=== PATIENT | female | born 1955 | race Caucasian/White ===

== ENCOUNTER 2024-02-25 18:18 | Observation (INO) ==
[2024-02-25 18:59] LABS: BASOPHILS % (AUTO) 0.4 % (0.0-3.0); EOSINOPHILS # (AUTO) 0.2 K/ul (0.0-0.7); EOSINOPHILS % (AUTO) 1.5 % (0.0-7.0); HEMATOCRIT 33.4 % (37.0-47.0); HEMOGLOBIN 10.5 g/dl (12.0-16.0); IMMATURE GRANULOCYTE % (AUTO) 0.3 % (0.0-5.0); LYMPHOCYTES # (AUTO) 2.8 K/uL (0.60-3.4); LYMPHOCYTES % (AUTO) 28.4 (10.0-50.0); MEAN CORPUSCULAR HEMOGLOBIN 27.4 pg (27.0-31.0); MEAN CORPUSCULAR HGB CONC 31.4 (31.8-35.4); MEAN CORPUSCULAR VOLUME 87.2 fl (81.0-99.0); MONOCYTES # (AUTO) 0.9 K/uL (0.4-2.0); MONOCYTES % (AUTO) 8.6 (0-10); NEUTROPHILS % (AUTO) 60.8 % (42.2-75.2); PLATELET COUNT 267 10^3/uL (140-440); RED BLOOD COUNT 3.83 10^6/ul (4.20-5.40); WHITE BLOOD COUNT 9.85 K/ul (4.6-10.2)
[2024-02-25 19:11] LABS: ALANINE AMINOTRANSFERASE 155.4 U/L (0-35); ALBUMIN 3.14 g/dL (3.5-5.0); ALKALINE PHOSPHATASE 80.4 U/L (53-141); ASPARTATE AMINO TRANSFERASE 130.9 U/L (14-36); BILIRUBIN,TOTAL 0.5 mg/dL (0.2-1.3); BLOOD UREA NITROGEN 23.5 mg/dL (7-17); CALCIUM 8.94 mg/dL (8.4-10.2); CARBON DIOXIDE 36.7 mmol/L (22-30.0); CHLORIDE 99.6 mmol/L (98-107); CREATININE 1.37 mg/dL (0.60-1.30); GLUCOSE 109.4 mg/dL (74-106); LIPASE 67.8 U/L (23-300); SODIUM 139.7 mmol/L (134.5-145); TOTAL PROTEIN 5.86 g/dL (6.3-8.2)
[2024-02-25 19:14] LABS: POTASSIUM 2.47 mmol/L (3.5-5.1)
[2024-02-25] MEDS: GLUCAGEN IVP STA (19:14)
[2024-02-25] MEDS: PEPCID IVP ONE (19:15)
[2024-02-25] MEDS: SODIUM CHLORIDE 1,000 ML IV ONE (19:15)
[2024-02-25] MEDS: REGLAN IVP STA (19:15)
[2024-02-25] MEDS ORDERED: LIDOCAINE HCL 1% ABBOJECT IVP STA (19:33)
[2024-02-25 19:34] LABS: BILIRUBIN,URINE Negative (NEGATIVE); CLARITY,URINE Clear (CLEAR); COLOR,URINE Yellow (YELLOW); GLUCOSE, URINE (UA) Negative (NEGATIVE); KETONES,URINE Negative (NEGATIVE); LEUKOCYTE ESTERASE ,URINE Negative (NEGATIVE); NITRITE,URINE Negative (NEGATIVE); PROTEIN,URINE 2+ (NEGATIVE); URINE, BLOOD 3+ (NEGATIVE); UROBILINOGEN,URINE 0.2 (0.2)
[2024-02-25] MEDS: POTASSIUM CHL 10% ORAL SOL PO STA (19:58)
[2024-02-25] MEDS: POTASSIUM CHLORIDE 20 MEQ/100 ML PREMIX 40 MEQ/200 ML BAG IV ONE (20:00)
[2024-02-25] MEDS ORDERED: POTASSIUM CHLORIDE 10 MEQ/100 ML PREMIX 10 MEQ/100 ML BAG IV SCH (20:00)
[2024-02-25] MEDS: LIDOCAINE HCL 1% ABBOJECT IVP ONE (20:00)
--- NOTE | 2024-02-25 20:38 | DI ---
EXAM: CHEST X-RAY ONE VIEW. HISTORY: Chest pain/short of breath. COMPARISON: None. FINDINGS: Heart and pulmonary vascularity within normal limits. The lungs are satisfactory inflated with linear markings in the left lower lung. Chronic appearing increased interstitial lung markings . No pleural effusion. No change in the osseous structures. IMPRESSION: 1. Left lower lung linear atelectasis and/or scarring with no acute cardiopulmonary process.
--- NOTE | 2024-02-25 20:43 | CT ---
EXAM: CT OF THE ABDOMEN AND PELVIS WITH CONTRAST TECHNIQUE: CT of the abdomen and pelvis was performed with contrast. Multiplanar reformats were perf ormed. HISTORY: Constipation. Abdominal pain. COMPARISON: None. FINDINGS: Motion degraded exam. Imaged lower thorax: Coronary calcifications. Mild dependent atelectasis in the lower lobes. Liver: Unremarkable. Gallbladder/Bile Ducts: No biliary dilation. Gallbladder is unremarkable. Spleen: Unremarkable. Pancreas: Unremarkable. Adrenals: Unremarkable. Kidneys/Ureters: 3 mm stone at the right lower renal pole. Bilateral renal arterial calcifications. No hydronephrosis. Bowel/mesentery/peritoneum: No small bowel obstruction. Large colonic stool burden. No appendicitis. No ascites or free air. Retroperitoneum/vessels: No aortic aneurysm. Extensive atherosclerotic plaques. 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 Multifocal high grade stenosis in the imaged iliofemoral branches bilaterally. Pelvis: Unremarkable. Bones/body wall: Advanced multilevel degenerative spondylosis. No acute osseous abnormality. IMPRESSION: Large colonic stool burden consistent with constipation. Severe atherosclerotic disease. 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 Status post left aortoiliac bypass. 3 mm nonobstructing right renal stone. All CT scans are performed using dose optimization techniques as appropriate to the performed exam an d include at least one of the following: Automated exposure control, adjustment of the mA and/or kV according t o size, and the use of iterative reconstruction technique.
[2024-02-25 20:49] LABS: SARS COV-2 RNA RAPID NAAT NEGATIVE (NEGATIVE)
[2024-02-25] MEDS ORDERED: ZOFRAN 4 MG/2 ML IVP PRN (21:29)
[2024-02-25] MEDS ORDERED: TYLENOL PO PRN (21:29)
--- NOTE | 2024-02-25 21:55 | ED.PDOC ---
General ED Provider: Dr. OSVALDO MCMAHAN DO Chief Complaint: Abnormal Labs Stated Complaint: 69-year-old female presents to the ER by request of primary care for abnormal labs. Apparently hypokalemic during routine lab testing. Patient denies any headache, chest pain, shortness of breath, abdominal pain, genitourinary symptoms. Patient has a history of chronic constipation. Family states that she has not had a bowel movement or any stool whatsoever in 2 weeks. No reported vomiting. Patient has a history of CVA with left-sided deficit. No blood thinner use. She does have Plavix listed on her medication list however. Time Seen by Provider: 02/25/24 18:37 Information Source: Family Primary Care Provider: KIM MCFARLANE PA-C Nursing and Triage Documentation Reviewed and Agree: Yes What is Opioid Naive?: *Opioid Naive implies the patient is not already taking opioids or not chronically receiving opioids on a daily basis. *PRN dosing is not "usually" associated with tolerance. *Patients are at higher risk of over-sedation and aspiration. What is Opioid Tolerant?: *Opioid Tolerance implies less than the expected response to an opioid. *Acquired tolerance is defined by the patient taking 60mg of oral morphine daily (or equianalgesic dose of another opioid) for 1 week or more. *Often associated with chronic pain. *May take more than usual dose to achieve desired pain control. Review of Systems Review Of Systems Constitutional: Reports No symptoms All Other Systems: Reviewed and Negative [facility] Medical History (Updated 02/25/24 @ 21:55 by OSVALDO MCMAHAN DO) History of CVA (cerebrovascular accident) Z86.73 - Personal history of transient ischemic attack (TIA), and cerebral infarction without residual deficits (ICD-10) Social History (Updated 02/25/24 @ 08:37 by LEAH PAREDES) Smoking and tobacco status: Current every day smoker Tobacco type: cigarettes Female Reproductive History Menstrual Hx Hysterectomy: No Hx Tubal Ligation: No Physical Exam Physical Exam Appearance: Reports Well-appearing, No pain distress and Well-nourished Eyes: Reports JOYA and EOMI ENT: Reports Nose normal and Oropharynx normal Neck: Supple Respiratory: Reports Airway patent, Breath sounds clear and Respirations nonlabored Cardiovascular: Reports RRR and Pulses normal GI/: Reports Soft and Nontender Musculoskeletal: Reports No edema and Other (Left-sided paralysis, chronic) Skin: Reports Warm, Dry and Normal color Neurological: Reports Sensation intact, Motor intact (Paralysis stated above), Alert and Oriented Psychiatric: Reports Affect appropriate and Mood appropriate Interpretation EKG Interpretation EKG Interpretation By: ED Physician Time of EKG #1: 19:02 Rate: Normal Rhythm: Sinus Ectopy: None [place]: NL ST Segment: Normal Interpretation: Nonischemic EKG Course Course 02/25/24 18:54 02/25/24 18:54 Orders, Labs, Meds: Lab Review 02/25/24 02/25/24 02/25/24 08:28 18:54 19:25 WBC 9.85 RBC 3.83 L Hgb 10.5 L Hct 33.4 L MCV 87.2 MCH 27.4 MCHC 31.4 L RDW Coeff of Era 15.0 H Plt Count 267 Immature Gran % (Auto) 0.3 Neut % (Auto) 60.8 Lymph % (Auto) 28.4 [place] % (Auto) 8.6 Eos % (Auto) 1.5 Baso % (Auto) 0.4 Neut # (Auto) 6.0 Lymph # (Auto) 2.8 [place] # (Auto) 0.9 Eos # (Auto) 0.2 Baso # (Auto) 0.0 Immature Gran # (Auto) 0.0 Sodium 139.7 Potassium 2.47 L* Chloride 99.6 Carbon Dioxide 36.7 H Anion Gap 5.87 BUN 23.5 H Creatinine 1.37 H Estimated GFR (MDRD) 38.00 BUN/Creatinine Ratio 17.15 Glucose 109.4 H Calcium 8.94 Total Bilirubin 0.50 AST 130.9 H ALT 155.4 H Alkaline Phosphatase 80.4 Total Protein 5.86 L Albumin 3.14 L Globulin 2.72 Albumin/Globulin Ratio 1.15 Lipase 67.8 Urine Color Yellow Urine Clarity Clear Urine pH 7.0 Ur Specific [place] 1.020 Urine Protein 2+ H Urine Glucose (UA) Negative Urine Ketones Negative Urine Blood 3+ H Urine Nitrite Negative Urine Bilirubin Negative Urine Urobilinogen 0.2 Ur Leukocyte Esterase Negative Urine Microscopic RBC 10-20 Ur Squamous Epith Cells 10-20 Ur Transition Epith Cell 5-10 SARS CoV-2 RNA Rapid TANI Negative Orders Category Date Time Status PLACE [facility] 02/25/24 21:35 Active ) EKG-(ED ONLY) Stat CARDIO 02/25/24 18:46 Completed ACTIVITY .Up With Assistance CARE 02/25/24 21:29 Active INTAKE & OUTPUT Q8HR CARE 02/25/24 21:29 Active INTAKE & OUTPUT Q8HR CARE 02/25/24 21:35 Active NPO REMINDER: IMAGING ONCE CARE 02/25/24 18:46 Completed Soap Suds [ENEMA/RECTAL TUBE] ONCE CARE 02/25/24 21:29 Active TELEMETRY MONITORING TELE CARE 02/25/24 21:35 Active TELEMETRY MONITORING TELE CARE 02/25/24 21:38 Active VITAL SIGNS Q4HR CARE 02/25/24 21:31 Active CARDIAC DIET DIETARY 02/26/24 Breakfast Ordered CBC W/ AUTO DIFF DAILY@0600 LAB 02/26/24 06:00 Ordered CBC W/ AUTO DIFF DAILY@0600 LAB 02/27/24 06:00 Ordered CBC W/ AUTO DIFF Stat LAB 02/25/24 18:54 Completed CMP [COMPREHENSIVE METABOLIC PANEL] Stat LAB 02/25/24 18:54 Completed COMPREHENSIVE METABOLIC PANEL DAILY@0600 LAB 02/26/24 06:00 Ordered COMPREHENSIVE METABOLIC PANEL DAILY@0600 LAB 02/27/24 06:00 Ordered COVID [SARS COV-2 RNA RAPID TANI] Stat LAB 02/25/24 08:28 Completed LIPASE Stat LAB 02/25/24 18:54 Completed URINALYSIS C & S IF INDICATED Stat LAB 02/25/24 19:25 Completed Acetaminophen [Tylenol] Meds 02/25/24 21:29 Ordered 650 mg PO Q4H PRN Bisacodyl [Dulcolax] Meds 02/25/24 21:29 Stat 5 mg PO ONCE STA Docusate Sodium [Colace] Meds 02/25/24 22:00 Ordered 100 mg PO BID Famotidine Inj [Pepcid] Meds 02/25/24 18:46 Discontinued 20 mg IVP ONCE ONE Glucagon,Human Recombinant [Glucagen] Meds 02/25/24 18:47 Discontinued 0.5 mg IVP ONCE STA Lidocaine HCl/Pf [Lidocaine HCl 1% Abboject] Meds 02/25/24 19:52 Discontinued 25 mg IVP ONCE ONE Metoclopramide HCl [Reglan] Meds 02/25/24 18:47 Discontinued 10 mg IVP ONCE STA Ondansetron HCl/Pf [Zofran 4 mg/2 ml] Meds 02/25/24 21:29 Ordered 4 mg IVP Q6H PRN Polyethylene Glycol 3350 [Miralax] Meds 02/26/24 09:00 Ordered 17 gm PO DAILY Potassium Chloride [Potassium Chl 10% Oral Radha] Meds 02/25/24 19:30 Discontinued 40 meq PO ONCE STA Potassium Chloride [Potassium Chloride 20 Meq/100 ml Meds 02/25/24 19:30 Active Premix] 40 meq in 200 ml IV ONCE Sodium Chloride 0.9% [Sodium Chloride] 1,000 ml Meds 02/25/24 21:30 Ordered IV 75 mls/hr Sodium Chloride 0.9% [Sodium Chloride] 1,000 ml Meds 02/25/24 18:46 Discontinued IV BOLUS CHEST, 1V AP ONLY Stat RADS 02/25/24 18:[address] ABDOMEN/PELVIS W CONTRAST Stat RADS 02/25/24 18:46 Completed Medications Generic Name Dose Route Start Last Admin Trade Name Freq PRN Reason Stop Dose Admin Acetaminophen 650 mg 02/25/24 21:29 Acetaminophen 325 Mg Tablet PO Q4H PRN Mild Pain Bisacodyl 5 mg 02/25/24 21:29 Bisacodyl 5 Mg Tablet. PO 02/25/24 21:30 ONCE STA Docusate Sodium 100 mg 02/25/24 22:00 Docusate Sodium [address] [facility] Potassium Chloride 40 meq in 200 mls @ 50 mls/hr 02/25/24 19:30 02/25/24 20:00 Potassium Chloride 20 Meq/100 Ml Premix IV 02/25/24 23:29 50 mls/hr ONCE ONE Administration Sodium Chloride 1,000 mls @ 75 mls/hr 02/25/24 21:30 Sodium Chloride IV .[id number] ALCIRA Ondansetron HCl 4 mg 02/25/24 21:29 Ondansetron Hcl/Pf 4 Mg/2 Ml Sdv IVP Q6H PRN Nausea / Vomiting Polyethylene Glycol 17 gm 02/26/24 09:00 Polyethylene Glycol 17 Gm Powd.Pack PO DAILY ALCIRA Discontinued Medications Generic Name Dose Route Start Last Admin Trade Name Freq PRN Reason Stop Dose Admin Famotidine 20 mg 02/25/24 18:46 02/25/24 19:15 Famotidine Inj 20 Mg/2 Ml Vial IVP 02/25/24 18:47 20 mg ONCE ONE Administration Glucagon 0.5 mg 02/25/24 18:47 02/25/24 19:14 Glucagon,Human Recombinant 1 Mg Kit IVP 02/25/24 18:48 0.5 mg ONCE STA Administration Sodium Chloride 1,000 mls @ 1,000 mls/hr 02/25/24 18:46 02/25/24 20:15 Sodium Chloride IV 02/25/24 19:45 Infused BOLUS ONE Infusion Lidocaine HCl 25 mg 02/25/24 19:52 02/25/24 20:00 Lidocaine Hcl/Pf 50 Mg/5 Ml Disp.Syrin IVP 02/25/24 19:53 25 mg ONCE ONE Administration Metoclopramide HCl 10 mg 02/25/24 18:47 02/25/24 19:15 Metoclopramide Hcl 10 Mg/2 Ml IVP 02/25/24 18:48 10 mg ONCE STA Administration Potassium Chloride 40 meq 02/25/24 19:30 02/25/24 19:58 Potassium Chloride 40 Meq/30 Ml Cup PO 02/25/24 19:31 40 meq ONCE STA Administration Vital Signs: Temp Pulse Resp BP Pulse Ox 02/25/24 18:37 98.0 F 69 18 141/64 H 98 Discharge Plan Discharge Patient Disposition: PLACED OBSERVATION Discharge Problem: Acute hypokalemia, Acute constipation Did you review [place] [employer] for ALL controlled substances?: Not Applicable ED Provider: OSVALDO MCMAHAN Condition: Stable Physician Progress Note: 69-year-old female presents to the ER for evaluation of abnormal labs. Requested by primary care. Noted to be hypokalemic. I have begun repletion after confirming the hypokalemia. EKG nonischemic with normal intervals at this time. Hemodynamically stable. Patient reportedly has been constipated for 2 weeks. No obvious distress or vomiting to suggest obstruction. CT scan ordered to further evaluate which demonstrates constipation without evidence of obstruction or impaction. No acute intervention in the emergency department necessary in my clinical opinion. Aggressive potassium repletion started in the emergency department and I contacted the hospital service who was gracious enough to accept this patient for further laboratory stabilization. []
[2024-02-25] MEDS: SODIUM CHLORIDE 1,000 ML IV SCH (22:35)
[2024-02-25 23:40] VITALS: BMI 22.7
[2024-02-25] MEDS ORDERED: CRESTOR PO SCH (23:45)
[2024-02-25] MEDS: COLACE PO SCH (23:59)
[2024-02-25] MEDS: DULCOLAX PO STA (23:59)
[2024-02-26] MEDS: DULCOLAX ONE
[2024-02-26] MEDS ORDERED: MIRALAX PO SCH (00:53)
[2024-02-26 01:45] LABS: BLOOD UREA NITROGEN 19.3 mg/dL (7-17); CALCIUM 8.19 mg/dL (8.4-10.2); CHLORIDE 106.7 mmol/L (98-107); CREATININE 1.23 mg/dL (0.60-1.30); GLUCOSE 92.9 mg/dL (74-106); POTASSIUM 2.85 mmol/L (3.5-5.1); SODIUM 138.9 mmol/L (134.5-145)
[2024-02-26 02:04] LABS: CARBON DIOXIDE 27.7 mmol/L (22-30.0)
[2024-02-26] MEDS: K-DUR PO ONE ×3 (02:57→10:56)
[2024-02-26 05:13] LABS: BASOPHILS % (AUTO) 0.4 % (0.0-3.0); EOSINOPHILS # (AUTO) 0.2 K/ul (0.0-0.7); EOSINOPHILS % (AUTO) 1.8 % (0.0-7.0); HEMOGLOBIN 9.5 g/dl (12.0-16.0); IMMATURE GRANULOCYTE % (AUTO) 0.2 % (0.0-5.0); LYMPHOCYTES # (AUTO) 2.6 K/uL (0.60-3.4); LYMPHOCYTES % (AUTO) 25.6 (10.0-50.0); MEAN CORPUSCULAR HEMOGLOBIN 27.6 pg (27.0-31.0); MEAN CORPUSCULAR HGB CONC 31.7 (31.8-35.4); MEAN CORPUSCULAR VOLUME 87.2 fl (81.0-99.0); MONOCYTES # (AUTO) 0.8 K/uL (0.4-2.0); MONOCYTES % (AUTO) 8.2 (0-10); NEUTROPHILS # (AUTO) 6.4 K/ul (2.0-6.9); NEUTROPHILS % (AUTO) 63.8 % (42.2-75.2); PLATELET COUNT 229 10^3/uL (140-440); RDW COEFFICIENT OF VARIATION 15.2 % (11.6-14.8); RED BLOOD COUNT 3.44 10^6/ul (4.20-5.40); WHITE BLOOD COUNT 10.01 K/ul (4.6-10.2)
[2024-02-26 05:28] LABS: ALANINE AMINOTRANSFERASE 123.6 U/L (0-35); ALBUMIN 2.68 g/dL (3.5-5.0); ALKALINE PHOSPHATASE 79.6 U/L (53-141); ASPARTATE AMINO TRANSFERASE 104.7 U/L (14-36); BILIRUBIN,TOTAL 0.5 mg/dL (0.2-1.3); BLOOD UREA NITROGEN 17.1 mg/dL (7-17); CALCIUM 7.99 mg/dL (8.4-10.2); CARBON DIOXIDE 25.7 mmol/L (22-30.0); CHLORIDE 106.5 mmol/L (98-107); CREATININE 1.22 mg/dL (0.60-1.30); GLUCOSE 92.6 mg/dL (74-106); SODIUM 136.8 mmol/L (134.5-145); TOTAL PROTEIN 5.2 g/dL (6.3-8.2)
[2024-02-26 05:31] LABS: POTASSIUM 2.7 mmol/L (3.5-5.1)
[2024-02-26] MEDS: PRILOSEC PO SCH (05:39)
[2024-02-26] MEDS: MIRALAX PO SCH (09:03)
[2024-02-26] MEDS: DITROPAN XL PO SCH (09:03)
[2024-02-26] MEDS: MYRBETRIQ PO SCH (09:04)
[2024-02-26] MEDS: NORVASC PO SCH (09:04)
[2024-02-26] MEDS: ZOFRAN TAB PO SCH (09:04)
[2024-02-26] MEDS: NYSTATIN CREAM TP SCH (09:04)
[2024-02-26] MEDS: PLAVIX PO SCH (09:04)
[2024-02-26] MEDS: ASPIRIN EC PO SCH (09:04)
[2024-02-26] MEDS: CARAFATE PO SCH (09:08)
[2024-02-26 10:14] VITALS: BP 125/56; PULSE 78; RESP 16; TEMP 98.8
[2024-02-26 12:55] LABS: BLOOD UREA NITROGEN 16.2 mg/dL (7-17); CALCIUM 8.02 mg/dL (8.4-10.2); CARBON DIOXIDE 25.4 mmol/L (22-30.0); CHLORIDE 106.8 mmol/L (98-107); CREATININE 1.16 mg/dL (0.60-1.30); POTASSIUM 3.33 mmol/L (3.5-5.1); SODIUM 137.1 mmol/L (134.5-145)
--- NOTE | 2024-02-26 13:22 | PCM.SS ---
Provider Provider: AN[facility]AN TIWARI PA-C, [facility] Ad[facility] Date Admission Date: 02/25/24 Discharge Date Discharge Date: 02/26/24 Primary Care Physician Primary Care Physician: KIM MCFARLANE PA-C Chief Complaint Reason For Visit: HYPOKALEMIA, CONSTIPATION History of Present Illness History of Present Illness: Admitted 02/25/24 21:47, this 69 year old /WHITE/F presented with family to ER for abnormal labs. Patient had visited with a new PCP yesterday morning and have labs done. Potassium was 2.4 unexpectedly, therefore she was directed to the ER. Patient has been also struggling with constipation for 2 weeks. Pt is an unreliable historian. She states this is not unusual for her, but prune juice usually takes care of it for her. However she did not try any prune juice. She has been having low back pain. Family was concerned about a UTI as she has had these in the past. UA negative for infection, but did note some hematuria. Potassium repeated and confirmed low. Liver enzymes very mildly elevated. CT a/p confirming constipation. Patient was given potassium and fluids in the ER. Patient was given dulcolax, miralax, colace, and an enema which was successful. She's had 2-3 large BMs. Would recommend a daily regimen of miralax and colace bid, prune juice prn. Liver enzymes trending down, could be reactive from significant stool burden, would recommend continuing to trend these outpatient. K+ improved with supplementation. 3.3 at time of discharge. Will discharge on 20 meq daily x5 days, f/u with pcp. Per family, they have DME needed at home. Home health ordered, they should be able to see her early next week. PCP f/u apt made for 03/04. Of note, hgb noted to be low at 9.5. Likely somewhat dilutional from fluids overnight. Labs obtained from [facility] hgb 10.5 on 01/04 so this is likely chronic. Per [facility] records, patient has pmhx of hypertension, chronic renal disease, hx of CVA, peripheral artery disease, hx of uterine and gastric cancer ROS limited due to patient being an unreliable historian. [facility] Medical History History of CVA (cerebrovascular accident) Z86.73 - Personal history of transient ischemic attack (TIA), and cerebral infarction without residual deficits (ICD-10) Social History Smoking and tobacco status: Current every day smoker Tobacco type: cigarettes Medications Mecications: Medications at Discharge (Home Meds & RX) Allergies Allergies Allergy/AdvReac Type Severity Reaction Status Date / Time No Known Allergies Allergy Unverified 02/25/24 18:36 Review of Systems Cardiovascular: Denies Chest pain, Chest Pressure or Edema Respiratory: Denies Cough Gastrointestinal: Reports Constipation; Denies Nausea, Vomiting, Diarrhea or Abdominal pain Genitourinary: Denies Dysuria or Frequency Musculoskeletal: Reports Back Pain Neurological: Reports Weakness (+chronic, left sided from previous cva ) Physical Examination Appearance: Positive No Apparent Distress, Thin and Other (+Alert, oriented to self and time only. Thinks we're in sister's home ) Head: Positive Normocephalic and Atraumatic Neck: Positive Supple Heart: Positive RRR Respiratory: Positive Breath Sounds Clear, Bilaterally and Respirations Nonlabored GI/: Positive Soft, Nontender, Bowel sounds normal and No Distention Extremities: Negative Edema Neurological: Positive Other (+left sided weakness from previous CVA, left hand contracted ) Vital Signs (Last 4 Hours) Vital Signs Last 4 Hours: Vital Signs: Last 4 Hours 02/26/24 09:47 02/26/24 10:00 02/26/24 11:00 Temperature 98.8 F Temperature Source Temporal Artery Scan Pulse Rate 78 Respiratory Rate 16 Blood Pressure 125/56 L Blood Pressure Mean 79 Blood Pressure Location Right Arm O2 Sat by Pulse Oximetry 96 Oxygen Delivery Method Room Air Room Air Room Air Telemetry Type Telemetry Monitoring Telemetry Heart Rate EKG IA Interval EKG QRS Interval Telemetry Strip Reading 02/26/24 12:00 02/26/24 12:41 02/26/24 13:00 Temperature Temperature Source Pulse Rate Respiratory Rate Blood Pressure Blood Pressure Mean Blood Pressure Location O2 Sat by Pulse Oximetry Oxygen Delivery Method Room Air Room Air Telemetry Type Remote Telemetry Telemetry Monitoring Continues Telemetry Heart Rate 74 EKG IA Interval 0.19 EKG QRS Interval 0.03 L Telemetry Strip Reading SR Labs This Visit Labs This Visit: Labs This Visit 0502/25/24 02/25/24 08:28 18:54 19:25 WBC 9.85 RBC 3.83 L Hgb 10.5 L Hct 33.4 L MCV 87.2 MCH 27.4 MCHC 31.4 L RDW Coeff of Era 15.0 H Plt Count 267 Immature Gran % (Auto) 0.3 Neut % (Auto) 60.8 Lymph % (Auto) 28.4 [place] % (Auto) 8.6 Eos % (Auto) 1.5 Baso % (Auto) 0.4 Neut # (Auto) 6.0 Lymph # (Auto) 2.8 [place] # (Auto) 0.9 Eos # (Auto) 0.2 Baso # (Auto) 0.0 Immature Gran # (Auto) 0.0 Sodium 139.7 Potassium 2.47 L* Chloride 99.6 Carbon Dioxide 36.7 H Anion Gap 5.87 BUN 23.5 H Creatinine 1.37 H Estimated GFR (MDRD) 38.00 BUN/Creatinine Ratio 17.15 Glucose 109.4 H Calcium 8.94 Total Bilirubin 0.50 AST 130.9 H ALT 155.4 H Alkaline Phosphatase 80.4 Total Protein 5.86 L Albumin 3.14 L Globulin 2.72 Albumin/Globulin Ratio 1.15 Lipase 67.8 Urine Color Yellow Urine Clarity Clear Urine pH 7.0 Ur Specific [place] 1.020 Urine Protein 2+ H Urine Glucose (UA) Negative Urine Ketones Negative Urine Blood 3+ H Urine Nitrite Negative Urine Bilirubin Negative Urine Urobilinogen 0.2 Ur Leukocyte Esterase Negative Urine Microscopic RBC 10-20 Ur Squamous Epith Cells 10-20 Ur Transition Epith Cell 5-10 SARS CoV-2 RNA Rapid TANI Negative 02/26/24 02/26/24 02/26/24 01:30 05:08 12:39 WBC 10.01 RBC 3.44 L Hgb 9.5 L Hct 30.0 L MCV 87.2 MCH 27.6 MCHC 31.7 L RDW Coeff of Era 15.2 H Plt Count 229 Immature Gran % (Auto) 0.2 Neut % (Auto) 63.8 Lymph % (Auto) 25.6 [place] % (Auto) 8.2 Eos % (Auto) 1.8 Baso % (Auto) 0.4 Neut # (Auto) 6.4 Lymph # (Auto) 2.6 [place] # (Auto) 0.8 Eos # (Auto) 0.2 Baso # (Auto) 0.0 Immature Gran # (Auto) 0.0 Sodium 138.9 136.8 137.1 Potassium 2.85 L 2.70 L* 3.33 L Chloride 106.7 106.5 106.8 Carbon Dioxide 27.7 D 25.7 25.4 Anion Gap 7.35 7.30 8.23 BUN 19.3 H 17.1 H 16.2 Creatinine 1.23 1.22 1.16 Estimated GFR (MDRD) 43.00 43.00 46.00 BUN/Creatinine Ratio 15.69 14.01 13.96 Glucose 92.9 92.6 119.0 H Calcium 8.19 L 7.99 L 8.02 L Total Bilirubin 0.50 AST 104.7 H D ALT 123.6 H D Alkaline Phosphatase 79.6 Total Protein 5.20 L Albumin 2.68 L Globulin 2.52 Albumin/Globulin Ratio 1.06 Lipase Urine Color Urine Clarity Urine pH Ur Specific [place] Urine Protein Urine Glucose (UA) Urine Ketones Urine Blood Urine Nitrite Urine Bilirubin Urine Urobilinogen Ur Leukocyte Esterase Urine Microscopic RBC Ur Squamous Epith Cells Ur Transition Epith Cell SARS CoV-2 RNA Rapid TANI Imaging Imaging: EXAM: CHEST X-RAY ONE VIEW. HISTORY: Chest pain/short of breath. COMPARISON: None. FINDINGS: Heart and pulmonary vascularity within normal limits. The lungs are satisfactory inflated with linear markings in the left lower lung. Chronic appearing increased interstitial lung markings. No pleural effusion. No change in the osseous structures. IMPRESSION: 1. Left lower lung linear atelectasis and/or scarring with no acute cardiopulmonary process. EXAM: CT OF THE ABDOMEN AND PELVIS WITH CONTRAST TECHNIQUE: CT of the abdomen and pelvis was performed with contrast. Multiplanar reformats were performed. HISTORY: Constipation. Abdominal pain. COMPARISON: None. FINDINGS: Motion degraded exam. Imaged lower thorax: Coronary calcifications. Mild dependent atelectasis in the lower lobes. Liver: Unremarkable. Gallbladder/Bile Ducts: No biliary dilation. Gallbladder is unremarkable. Spleen: Unremarkable. Pancreas: Unremarkable. Adrenals: Unremarkable. Kidneys/Ureters: 3 mm stone at the right lower renal pole. Bilateral renal arterial calcifications. No hydronephrosis. Bowel/mesentery/peritoneum: No small bowel obstruction. Large colonic stool burden. No appendicitis. No ascites or free air. Retroperitoneum/vessels: No aortic aneurysm. Extensive atherosclerotic plaques. 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 Multifocal high grade stenosis in the imaged iliofemoral branches bilaterally. Pelvis: Unremarkable. Bones/body wall: Advanced multilevel degenerative spondylosis. No acute osseous abnormality. IMPRESSION: Large colonic stool burden consistent with constipation. Severe atherosclerotic disease. 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 Status post left aortoiliac bypass. 3 mm nonobstructing right renal stone. Review Review Statement: I have independently reviewed and interpreted the labs/EKGs/imaging that were ordered by the ER provider. I have reviewed all outside records that are available currently in our EMR including imaging/notes/labs from previous visits. Plan Reccomendations/Plan: 1. Hypokalemia, severe - Replaced, improved to 3.3. Will send on supplementation for 5 days, recheck at pcp fu. 2. Constipation - Improved, pt has had 2-3 BMs since last night after enema and PO meds. Will recommend colace and miralax, pt likes prune juice. 3. Transaminitis, mild - Improved, continue to trend outpatient to make sure it resolves. Liver normal on CT. 4. Hyperlipidemia - Continue home meds 5. GERD - Continue home meds 6. PAD - Cont home meds 7. Hypertension - Cont home meds Patient was given dulcolax, miralax, colace, and an enema which was successful. She's had 2-3 large BMs. Would recommend a daily regimen of miralax and colace b id, prune juice prn. Liver enzymes trending down, could be reactive from significant stool burden, would recommend continuing to trend these outpatient. K+ improved with supplementation. 3.3 at time of discharge. Will discharge on 20 meq daily x5 days, f/u with pcp. Per family, they have DME needed at home. Home health ordered, they should be able to see her early next week. PCP f/u apt made for 03/04. Of note, hgb noted to be low at 9.5. Likely somewhat dilutional from fluids overnight. Labs obtained from [facility] hgb 10.5 on 01/04 so this is likely chronic. Discharge diagnoses: 1. Hypokalemia, severe - Improved 2. Constipation - Improved 3. Transaminitis, mild - Improved 4. Hyperlipidemia - chronic, stable 5. GERD - chronic, stable 6. PAD - Chronic, stable 7. Hypertension - Chronic, stable 8. Hx of CVA 9. Anemia, chronic Additional Planning: Case discussed with ED Physician, Dr. Gonzalez. [facility] minutes spent discussing advance care planning. Smoking Cessation: 3 minutes spent discussing smoking cessation. Admit to: Obs Discussed Plan of Care with Dr. Maricel Almeida. Review With Patient Reviewed with Patient and Family: Patient and family have been counseled on condition and care plan and have no immediate questions. I have personally discussed and reviewed the patient's visit/current labs/imaging/decision making with Dr. Maricel Almeida, my supervising attending. Total number of minutes spent with patient [85] min. More than 50% of the time spent with this patient was devoted to counseling and coordination of care. Time of Admission:02/25/24 21:47 Time of Discharge: 02/26/24 1030 Discharge Plan Discharge Discharge Orders: Discharge Patient (ONCE); Ordered 02/26/24 Ordered By: ANTWAN TIWARI Activity Restrictions/Additional Instructions: DISCHARGE TO HOME DX: HYPOKALEMIA, CONSTIPATION DIET: CARDIAC ACTIVITY: [facility] HAS BEEN ORDERED PHARMACY: F/U WITH PCP NEXT WEEK, RECOMMEND REPEATING POTASSIUM LEVELS RECOMMEND MIRALAX DAILY AND COLACE 1-2X DAILY (OVER THE COUNTER, GENERIC IS CHEAPER) A REFERRAL HAS BEEN SENT TO [facility] FOR PT/OT IN THE HOME. THE PHONE NUMBER TO REACH THEM IS [phone]. THEY SHOULD BE IN CONTACT WITH YOU IN THE NEXT FEW DAYS. Instructions: Constipation (GEN), Hypokalemia (GEN) Patient Disposition: HOME WITH FAMILY CARE Prescriptions: New potassium chloride 20 mEq tablet extended release 20 meq PO DAILY 5 Days Qty: 5 0RF Rx Instructions: STARTING 02/26 No Action nystatin 100,000 unit/gram cream 1 applic topical QDAY ondansetron HCl 4 mg tablet 4 mg PO Q8H amlodipine 5 mg tablet 5 mg PO QDAY clopidogrel [Plavix] 75 mg tablet 75 mg PO QDAY omeprazole 40 mg capsule,delayed release(DR/EC) 40 mg PO QDAY oxybutynin chloride 15 mg tablet extended release 24hr 15 mg PO QDAY mirabegron [Myrbetriq] 50 mg tablet extended release 24 hr 50 mg PO QDAY sucralfate 1 gram tablet 1 g PO BID rosuvastatin 40 mg tablet 40 mg PO QDAY polyethylene glycol 3350 [Miralax] 17 gram/dose powder 17 g PO QDAY Qty: 510 0RF Rx Instructions: dissolved in 8 ounces of water once daily. If no bowel movement produced, may increase to twice daily. aspirin [Adult Low Dose Aspirin] 81 mg tablet,delayed release (DR/EC) 81 mg PO QDAY Qty: 90 3RF Did you review [place] [employer] for ALL controlled substances?: Not Applicable Discussed opioids are addictive and Narcan is available by prescription or from pharmacy.: No Condition: Stable Referrals: KIM MCFARLANE, [facility] [Primary Care Provider] - 03/04/24 1:00 pm (Hospital follow up. NOTE, YOU ALSO HAVE AN ESTABLISH CARE APPOINTMENT ON 03/25/24 AT 10AM. PLEASE KEEP THIS APPOINTMENT WELL. )
[2024-02-26] MEDS ORDERED: CRESTOR PO SCH (21:00)
== END 2024-02-26 14:00 | disposition home or self-care (01) ==
LOC: MEDSURG B 18:18 → ED 18:18 → MEDSURG B 22:14
PROVIDERS: ADMIT Hospitalist; ATTEND Physician Assistant
DX: R74.01 Elevation of levels of liver transaminase levels; F17.210 Nicotine dependence, cigarettes, uncomplicated; K59.00 Constipation, unspecified; R30.0 Dysuria; R32 Unspecified urinary incontinence; J98.11 Atelectasis; D64.89 Other specified anemias; Z51.81 Encounter for therapeutic drug level monitoring; Z20.822 Contact with and (suspected) exposure to COVID-19; E78.5 Hyperlipidemia, unspecified; R10.9 Unspecified abdominal pain; E87.6 Hypokalemia; M54.9 Dorsalgia, unspecified; I10 Essential (primary) hypertension; Z86.73 Personal history of transient ischemic attack (TIA), and cerebral infarction without residual deficits; Z79.899 Other long term (current) drug therapy; K21.9 Gastro-esophageal reflux disease without esophagitis; I73.9 Peripheral vascular disease, unspecified